=== PATIENT | female | born 1975 ===

== ENCOUNTER 2019-03-15 08:32 | Emergency (ER) | payer OTHER ==
[~2019-03-15] VITALS: Ht 157.5 cm; Wt 58.5 kg
[2019-03-15] MEDS ORDERED: BENTYL10 MG/1 ML IM (08:51)
[2019-03-15] MEDS ORDERED: LEXAPRO5 MG PO (08:51)
== END 2019-03-15 10:55 | disposition home or self-care (01) ==
LOC: ER 08:32
DX: K29.60 Other gastritis without bleeding (principal)